=== PATIENT | female | born 1970 ===

== ENCOUNTER 2021-09-22 13:31 | Emergency (ER) | payer OTHER ==
[~2021-09-22] VITALS: Ht 160 cm; Wt 88.9 kg
[2021-09-22] MEDS ORDERED: PROVENTIL HFA6.7 GM IH (13:45)
[2021-09-22] MEDS ORDERED: SINGULAIR10 MG PO (13:46)
== END 2021-09-22 18:49 | disposition home or self-care (01) ==
LOC: ER 13:31
DX: J45.901 Unspecified asthma with (acute) exacerbation (principal); Z20.822 Contact with and (suspected) exposure to COVID-19